=== PATIENT | male | born 1980 | race Caucasian/White ===

== ENCOUNTER 2016-08-28 16:21 | Emergency (ER) | payer OTHER ==
[2016-08-28 16:23] VITALS: BP 130/78; PULSE 78; RESP 20; TEMP 97.4; O2SAT 100
[2016-08-28] MEDS ORDERED: ERYTOIN10 LEFT EYE (17:23)
--- NOTE | 2016-08-28 17:23 | PD ---
HPI Chief Complaint: Foreign Body Time Seen by Provider: 17:21 Travel History International Travel<30 days: No Contact w/Intl Traveler<30days: No Traveled to known affect area: No History of Present Illness HPI 36-year-old male presents to emergency Department with complaint of a wood chip in his left eye. He was using the chainsaw without protective glasses and had splinters of wood fly into his left eye. He has flushed his eye out. He thinks the splinter may have come out while he was waiting in the ER waiting room. It doesn't feel the same anymore and he thinks it came out. Denies further sensation of foreign body in his left eye. He denies change in vision. Denies eye drainage. Denies eye pain. Has not taken any medications to alleviate his symptoms. Allergies to morphine. No other medical complaints. No other modifying factors or associated signs and symptoms. PFSH Social History Tobacco Use: No Allergies-Medications (Allergen,Severity, Reaction): Coded Allergies: Morphine (Verified Allergy, Unknown, 08/28/16) Reported Meds & Prescriptions Reported Meds & Active Scripts Active Erythromycin Opth Oint 5 Mg/Gm Oint 1 Applic LEFT EYE BID 7 Days Review of Systems Except as stated in HPI: all other systems reviewed are Neg Physical Exam Narrative GENERAL: Well-nourished, well-developed male patient, in no acute distress SKIN: Warm and dry. HEAD: Atraumatic. Normocephalic. EYES: Pupils equal and round at 3 mm with brisk reaction. PERRLA. EOMI. Left lid eversion with no foreign body noted. Left eye with mild scleral erythema and without mild lid edema. No orbital tenderness, erythema or cellulitis. Left eye without photophobia. No consensual photophobia. No scleral icterus. no drainage. Mckinney lamp exam reveals questionable small, punctuate corneal abrasions. ENT: Mucosa pink and moist. Airway patent. NECK: Trachea midline. CARDIOVASCULAR: Regular rate. RESPIRATORY: No accessory muscle use. GASTROINTESTINAL: Flat. NEUROLOGICAL: Awake and alert. Oriented 3. No obvious cranial nerve deficits. Motor grossly within normal limits. Normal speech. PSYCHIATRIC: Appropriate mood and affect; insight and judgment normal. Data Data Last Documented VS Vital Signs Date Time Temp Pulse Resp B/P Pulse Ox O2 Delivery O2 Flow Rate FiO2 08/28/16 16:23 97.4 78 20 130/78 100 Room Air MDM Medical Decision Making Medical Screen Exam Complete: Yes Emergency Medical Condition: Yes Medical Record Reviewed: Yes Differential Diagnosis eye Foreign body, corneal abrasion, corneal ulceration Narrative Course 36-year-old male mckinney lamp exam concludes questionable small, punctuate corneal abrasions. Otherwise eye exam is unremarkable. I will prescribe erythromycin for questionable corneal abrasions. There is no foreign body seen on mckinney lamp exam. Erythromycin prescribed for home. Instructed patient to follow up with ophthalmology as needed. Patient verbalizes understanding and agreement with treatment plan. Patient is medically cleared and stable for discharge. Discussed reasons to return to the emergency department. Instructed patient to follow up with primary care provider. Patient agrees with treatment plan. The patients vital signs are stable and the patient is stable for outpatient follow-up and treatment. Patient discharged home, stable and in no acute distress. Diagnosis Primary Impression: Foreign body of left eye Qualified Code: T15.92XA - Foreign body of left eye, initial encounter Referrals: Primary Care Physician Patient Instructions: Eye Foreign Body (ED), General Instructions Additional Instructions: Ibuprofen or Tylenol as directed and as needed to reduce pain Do not patch the eye Do not rub the eye Refrigerated eye drops as needed to reduce pain Cool compresses to the eye as needed to reduce pain Follow-up with ophthalmology as needed Primary care provider Return to the emergency department immediately with worsening of symptoms Med/Other Pt SpecificInfo: Prescription(s) given Scripts Erythromycin Opth Oint 5 Mg/Gm Oint1 Applic LEFT EYE BID 7 Days Ref 0 Prov:Gilma Mello 08/28/16 Disposition: 01 DISCHARGE HOME Condition: Stable Gilma Mello Aug 28, 2016 17:23
== END 2016-08-28 17:39 | disposition home or self-care (01) ==
LOC: NEPK 16:21
DX: T15.92XA Foreign body on external eye, part unspecified, left eye, initial encounter (principal); W29.3XXA Contact with powered garden and outdoor hand tools and machinery, initial encounter; Y92.9 Unspecified place or not applicable; Y99.8 Other external cause status; Y93.H9 Activity, other involving exterior property and land maintenance, building and construction
CPT/HCPCS: 99282